=== PATIENT | male | born 1995 | race Two or more races ===

== ENCOUNTER 2017-10-11 21:12 | Emergency (ER) | payer OTHER ==
--- NOTE | 2017-10-11 22:19 | ED ---
Influenza-Like Illness - HPI Summary HPI Summary: 22-year-old male presents with sore throat and sinus congestion for past month. He has taken flu medication without relief. He denies any fevers. He denies any chest pain or shortness of breath. He admits occasional cough. He also has a rash on his hands and his groin. He has never had this rash before. Has been using cough and cold with some relief. The rash is itchy. Has been putting cream on the area which has been helping. He denies any new products or soaps. He denies any family history of eczema. - History of Current Complaint Chief Complaint: EDFluSymptoms Time Seen by Provider: 10/11/17 21:53 - Allergy/Home Medications Allergies/Adverse Reactions: Allergies Allergy/AdvReac Type Severity Reaction Status Date / Time No Known Allergies Allergy Verified 10/11/17 21:15 PMH/Surg Hx/FS Hx/Imm Hx Endocrine/Hematology History: Denies: Hx Anticoagulant Therapy Cardiovascular History: Denies: Hx Hypertension Infectious Disease History: No Infectious Disease History: Denies: Traveled Outside the [place] in Last 30 Days - Family History Known Family History: Positive: Diabetes - Social History Alcohol Use: None Substance Use Type: Reports: None Smoking Status (MU): Light Every Day Tobacco Smoker Review of Systems Negative: Fever Positive: Sore Throat Negative: Chest Pain Negative: Shortness Of Breath Positive: Rash All Other Systems Reviewed And Are Negative: Yes Physical Exam Triage Information Reviewed: Yes Vital Signs On Initial Exam: Initial Vitals Temp Pulse Resp BP Pulse Ox 97.4 F 98 14 126/79 100 10/11/17 21:15 10/11/17 21:15 10/11/17 21:15 10/11/17 21:15 10/11/17 21:15 Vital Signs Reviewed: Yes Appearance: Positive: Well-Appearing Skin: Positive: Warm, Dry, Other - patches/scaly rash on hands Head/Face: Positive: Normal Head/Face Inspection Eyes: Positive: Normal, EOMI, BELLA, Conjunctiva Clear ENT: Positive: Pharynx normal - cobblestone, TMs normal, Uvula midline, Other - soft palate symmetric. Negative: Tonsillar swelling, Tonsillar exudate, Trismus , Muffled voice Respiratory/Lung Sounds: Positive: Clear to Auscultation, Breath Sounds Present Cardiovascular: Positive: Normal, RRR Musculoskeletal: Positive: Normal Neurological: Positive: Normal Psychiatric: Positive: Normal Diagnostics - Vital Signs Vital Signs Temp Pulse Resp BP Pulse Ox 10/11/17 21:15 97.4 F 98 14 126/79 100 - Laboratory Lab Statement: Any lab studies that have been ordered have been reviewed, and results considered in the medical decision making process. Flu Symptom Course/Dx - Course Course Of Treatment: 22-year-old male presents with sore throat and sinus congestion for past month. He has taken flu medication without relief. He denies any fevers. He denies any chest pain or shortness of breath. He admits occasional cough. He also has a rash on his hands and his groin. He has never had this rash before. Has been using cough and cold with some relief. The rash is itchy. Has been putting cream on the area which has been helping. He denies any new products or soaps. He denies any family history of eczema. on exam pharynx cobblestone. rash has peeling and scaly to it and appears most like ezcema. believe that rash and sore throat by due to atopic. strept and flu neg. mono neg. will have follow up with primary and derm. patient understand and agrees with plan. - Diagnoses Differential Diagnosis/HQI/PQRI: Positive: Influenza, Upper Respiratory Infection, Other - strept Provider Diagnoses: Sore throat, Rash Discharge - Discharge Plan Condition: Good Disposition: HOME Prescriptions: Magic Mouth Was-RADHAMES/MAAL/LIDO* 5 ml SWISH SPIT QID #100 ml Triamcinolone 0.025% OINT * 1 applic TOPICAL BID #1 tube Patient Education Materials: Dermatitis (ED) Referrals: [facility] [place] [facility]ERR[facility] [Outside] Dennys Love MD [Medical Doctor] - Additional Instructions: Try zytrec once a day for sore throat Use magic mouth wash 5ml swish and spit up to four times a day Apply steroid cream to hands twice a day, with cream, do not apply cream to genital area Follow up with primary or dermatology Apply thick cream to area such as Eucerin Return to ED if develop any new or worsening symptoms
[2017-10-11] MEDS ORDERED: Triamcinolone 0.025% OINT * 15 GM TUBE TOPICAL ONE (22:58)
[2017-10-11] MEDS ORDERED: Lidocaine 2% VISCOUS* 15 ML UDC PO ONE (23:30)
[2017-10-11 23:42] VITALS: BP 117/88
== END 2017-10-11 23:41 | disposition home or self-care (01) ==
LOC: ED 21:12
DX: J02.9 Acute pharyngitis, unspecified (principal); R21 Rash and other nonspecific skin eruption; F17.200 Nicotine dependence, unspecified, uncomplicated
CPT/HCPCS: 36415; 86308; 87070; 87491; 87502; 87591; 87651; 99282

== ENCOUNTER 2017-10-18 18:07 | Emergency (ER) | payer OTHER ==
--- NOTE | 2017-10-18 19:51 | ED ---
GI/ HPI - HPI Summary HPI Summary: 22-year-old male presents with dysuria today. He denies any penile discharge. He denies any groin pain. He has a rash present that is unchanged for past month. He is told the eczema. He was previously tested for STDs here a week ago. The tests were negative. He denies any flank pain. He denies any abdominal pain. He denies any nausea or vomiting. He states he occasional saw blood in his urine today. He has not followed up the rash of the glass bender yet. He states the rash is same even though has been putting cream on. He admits to continue sore throat and nasal congestion but has not tried an antihistamine for such. - History of Current Complaint Chief Complaint: EDRashSkinAbscess Time Seen by Provider: 10/18/17 19:15 Stated Complaint: RASH Pain Intensity: 6 - Allergy/Home Medications Allergies/Adverse Reactions: Allergies Allergy/AdvReac Type Severity Reaction Status Date / Time No Known Allergies Allergy Verified 10/11/17 21:15 PMH/Surg Hx/FS Hx/Imm Hx Endocrine/Hematology History: Denies: Hx Anticoagulant Therapy Cardiovascular History: Denies: Hx Hypertension Infectious Disease History: No Infectious Disease History: Denies: Traveled Outside the [place] in Last 30 Days - Family History Known Family History: Positive: Diabetes - Social History Alcohol Use: None Substance Use Type: Reports: None Smoking Status (MU): Light Every Day Tobacco Smoker Review of Systems Negative: Fever Negative: Chest Pain Negative: Shortness Of Breath Positive: dysuria Positive: Rash All Other Systems Reviewed And Are Negative: Yes Physical Exam Triage Information Reviewed: Yes Vital Signs On Initial Exam: Initial Vitals Temp Pulse Resp BP Pulse Ox 99.4 F 98 18 137/94 99 10/18/17 18:27 10/18/17 18:27 10/18/17 18:27 10/18/17 18:27 10/18/17 18:27 Vital Signs Reviewed: Yes Appearance: Positive: Well-Appearing Skin: Positive: Warm, Dry, Other - erythematous patches and peeling on hands Head/Face: Positive: Normal Head/Face Inspection Eyes: Positive: Normal, Conjunctiva Clear Respiratory/Lung Sounds: Positive: Clear to Auscultation, Breath Sounds Present Cardiovascular: Positive: Normal, RRR Abdomen Description: Positive: Nontender, Soft. Negative: CVA Tenderness (R), CVA Tenderness (L) Bowel Sounds: Positive: Present Musculoskeletal: Positive: Normal Neurological: Positive: Normal Psychiatric: Positive: Normal Diagnostics - Vital Signs Vital Signs Temp Pulse Resp BP Pulse Ox 10/18/17 18:27 99.4 F 98 18 137/94 99 - Laboratory Lab Statement: Any lab studies that have been ordered have been reviewed, and results considered in the medical decision making process. GIGU Course/Dx - Course Course Of Treatment: 22-year-old male presents with dysuria today. He denies any penile discharge. He denies any groin pain. He has a rash present that is unchanged for past month. He is told the eczema. He was previously tested for STDs here a week ago. The tests were negative. He denies any flank pain. He denies any abdominal pain. He denies any nausea or vomiting. He states he occasional saw blood in his urine today. He has not followed up the rash of the glass bender yet. He states the rash is same even though has been putting cream on. He admits to continue sore throat and nasal congestion but has not tried an antihistamine for such. on exam rash same as previous. lungs CTA. abdomen soft nontender. neg CVA tenderness. patient declined STD testing. urine pos for uti. will treat with cipro. patient understand and agrees with plan. - Diagnoses Differential Diagnoses - Male: Pyelonephritis, Ureteral Calculi, Urinary Tract Infection Provider Diagnoses: UTI (urinary tract infection), Rash Discharge - Discharge Plan Condition: Good Disposition: HOME Prescriptions: Ciprofloxacin TAB* [Cipro 500 MG TAB*] 500 mg PO BID #13 tab Patient Education Materials: Urinary Tract Infection in Men (ED) Referrals: [facility] [place] [facility] RE[facility]ERR[facility] [Outside] Dennys Love MD [Medical Doctor] - Additional Instructions: Take antibiotic twice a day for 7 days, first dose given in ED Establish care with primary follow-up with dermatology continue cream on area take a daily Zyrtec for nasal congestion Return to ED if develop any new or worsening symptoms
[2017-10-18 20:16] LABS: Urine Appearance Clear; Urine Blood 1+ (Negative); Urine Color Amber; Urine Ketones Trace (Negative); Urine Protein 1+(30 mg/dL) (Negative); Urine Specific Gravity 1.029 (1.010-1.030); Urine Urobilinogen Positive (Negative)
[2017-10-18] MEDS ORDERED: Ciprofloxacin TAB* 500 MG PO ONE (20:19)
[2017-10-18 20:37] VITALS: BP 116/81
== END 2017-10-18 20:36 | disposition home or self-care (01) ==
LOC: ED 18:07
DX: N39.0 Urinary tract infection, site not specified (principal); R30.0 Dysuria; F17.210 Nicotine dependence, cigarettes, uncomplicated; R21 Rash and other nonspecific skin eruption
CPT/HCPCS: 36415; 81003; 81015; 86701; 86702; 86703; 87086; 99282; A9270-GY